=== PATIENT | male | born 1945 | race Caucasian/White ===

== ENCOUNTER → 2016-04-16 | Outpatient (CLI) | payer MEDICARE ==
[~2016-04-16] MED LIST: ASCOPOW; VITAMIN D
[2016-04-16 13:11] LABS: HDL CHOLESTEROL 63.1 MG/DL (40.0-60.0); INDIRECT BILIRUBIN 0.4 MG/DL (0.0-0.8); TOTAL BILIRUBIN ADULT 0.5 MG/DL (0.2-1.0)
== END ==
LOC: PLAB 08:05
PROVIDERS: ATTEND Family Medicine
DX: E78.2 Mixed hyperlipidemia (principal); Z79.899 Other long term (current) drug therapy
CPT/HCPCS: 36415; 80061; 80076

== ENCOUNTER → 2017-05-18 | Outpatient (CLI) | payer MEDICARE ==
[2017-05-18 09:44] LABS: ALBUMIN 3.8 GM/DL (3.4-5.0); AST (GOT) 14 U/L (15-37); BICARBONATE 28.8 MEQ/L (21.0-32.0); BLOOD UREA NITROGEN 21 MG/DL (7-18); CHLORIDE 108 MEQ/L (98-107); CHOLESTEROL 175 MG/DL (120-200); CREATININE 1.06 MG/DL (0.60-1.30); GLOMERULAR FILTRATION RATE 69 ML/MIN (>89); GLUCOSE,FASTING 123 MG/DL (74-99); SODIUM (NA) 141 MEQ/L (136-145)
[2017-05-18 09:49] LABS: ALKALINE PHOSPHATASE 104 U/L (45-117); ALT (GPT) 43 U/L (12-78); CHOLESTEROL/ HDL RATIO 2.77 RATIO; LDL CHOLESTEROL 94 MG/DL (0-99); TOTAL BILIRUBIN ADULT 0.6 MG/DL (0.2-1.0); TOTAL PROTEIN 7.1 GM/DL (6.4-8.2); TRIGLYCERIDES 88 MG/DL (42-150)
== END ==
LOC: PLAB 07:05
PROVIDERS: ATTEND Family Medicine
DX: E78.2 Mixed hyperlipidemia (principal)
CPT/HCPCS: 36415; 80053; 80061

== ENCOUNTER → 2017-06-15 | Day surgery (SDC) | payer MEDICARE ==
[~2017-06-15] VITALS: Ht 185.4 cm; Wt 97.5 kg
[~2017-06-15] MED LIST changes: +ASPI-516 PO; +ATOR40TA16 PO; +CHLORHEXIDINE GLUCONATE 2 % 1 PACK (2 CLOTHS) TOPICAL PRN; +CLINDAMYCIN 600 MG/NS PREMIX 50 ML IV PRN; +FINA5TAB2; +FLUO0.05 TOPICAL; +LACTATED RINGER'S 1000 ML IV PRN; +LIDOCAINE 1%/EPINEPHrine 1:100,000 SOLN 20 ML VIAL ONE; +METOPROLOL TARTRATE 25 MG TAB PO PRN; +MIDAZOLAM HCL 2 MG/2 ML VIAL ONE; +MUPIROCIN 2% OINT 22 GM TUBE ONE; +POVIDONE IODINE 5% (ANTISEPSIS KIT) 4 APPLICATIONS EACH NARE PRN; +SODIUM CHLORID 0.9% 500 ML IV PRN; +TAMS0.4C4 PO
[2017-06-15 14:20] VITALS: BP 128/69; PULSE 78; RESP 16; TEMP 98; O2SAT 97
--- NOTE | 2017-06-15 16:06 | EKG ---
Date Performed: 06/15/2017 Time Performed: 09:47:11 PTAGE: 72 years EKG: Sinus rhythm WITH FIRST DEGREE AV BLOCK WITH OCCASIONAL SUPRAVENTRICULAR PREMATURE COMPLEXES INFERIOR MYOCARDIAL INFARCTION ABNORMAL ECG PREVIOUS TRACING : 03/04/2011 11.04 Inferior myocardial infarction pattern is new since prior t racing. DOCTOR: Dany Schreiber Interpretating Date/Time 06/15/2017 16:05:56
--- NOTE | 2017-06-23 15:23 | MP ---
cc: Redd Maya MD DATE OF OPERATION: 06/15/2017 DATE OF OPERATION: 06/15/2017. SURGEON: Dr. 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 POSTOPERATIVE DIAGNOSIS: Cutaneous malignancy of right conchal bowl. OPERATION PERFORMED: Full thickness excision of malignant lesion of right conchal bowl. DESCRIPTION OF PROCEDURE: The patient was taken to OR #2 and placed in the supine position. Following induction of general anesthesia and intubation using a laryngeal mask apparatus, the area of the lesion was injected with 1.5 mL of 1% Xylocaine with epinephrine 1:100,000. He was then prepped and draped for surgery. The lesion was excised using a 15 blade scalpel and [place] elevator. The incision was made completely through the cartilage of the floor of the conchal bowl extending into the ear canal. The deep side was then from the underlying skin and soft tissue using a David elevator. The lesion was passed off the field as specimen. It was oriented with a single suture at the 3 o'clock position. The defect was then addressed. Closure was not possible due to the remaining skin being attached to the underlying cartilage. The margins of the cutaneous defect were then cauterized using needle tip Bovie at 15 grant. The wound bed was cauterized in identical fashion and the entire defect was then covered with mupirocin ointment and the procedure was terminated. The patient was then reversed from anesthesia and taken to recovery in good condition. There were no complications. Blood loss was 10 mL. MD MEME Pardo/SB , 02:51 PM , 03:22 PM
== END | disposition home or self-care (01) ==
LOC: PHSDC 08:57
PROVIDERS: ATTEND Otolaryngology
DX: C44.212 Basal cell carcinoma of skin of right ear and external auricular canal (principal); R94.31 Abnormal electrocardiogram [ECG] [EKG]
CPT/HCPCS: 00300; 11644; 88305; 93005; J2250; J3010; J7120

== ENCOUNTER → 2017-07-07 | Outpatient (CLI) | payer MEDICARE ==
[~2017-07-07] MED LIST changes: -CHLORHEXIDINE GLUCONATE 2 % 1 PACK (2 CLOTHS) TOPICAL PRN; -CLINDAMYCIN 600 MG/NS PREMIX 50 ML IV PRN; -LACTATED RINGER'S 1000 ML IV PRN; -LIDOCAINE 1%/EPINEPHrine 1:100,000 SOLN 20 ML VIAL ONE; -METOPROLOL TARTRATE 25 MG TAB PO PRN; -MIDAZOLAM HCL 2 MG/2 ML VIAL ONE; -MUPIROCIN 2% OINT 22 GM TUBE ONE; -POVIDONE IODINE 5% (ANTISEPSIS KIT) 4 APPLICATIONS EACH NARE PRN; -SODIUM CHLORID 0.9% 500 ML IV PRN
== END ==
LOC: PLAB 10:55
PROVIDERS: ATTEND Urology
DX: R97.20 Elevated prostate specific antigen [PSA] (principal)
CPT/HCPCS: 36415; 84153